=== PATIENT | female | born 1985 | race Two or more races ===

== ENCOUNTER 2024-08-05 17:50 | Emergency (ER) | payer MEDICAID, SELFPAY ==
[2024-08-05 18:23] VITALS: BP 126/84; PULSE 116; RESP 19; TEMP 38.3; O2SAT 98; BMI 34.8
--- NOTE | 2024-08-05 18:51 | XR_ITS ---
Examination: PA lateral chest 2 views Technique: Upright PA lateral chest 2 views Exam date and time: August 05, 2024 at 1902 hrs. Indications: Chest pain today. Findings: Normal heart size. Lungs are clear. The osseous structures are intact Impression: No active disease
--- NOTE | 2024-08-05 18:52 | PD.EDRME ---
Rapid Medical Screening Exam [facility] Arrival date/time: 08/05/24 17:50 39-year-old female presents emergency department complaining of headache, body aches, cough, sore throat, and chest pain when she takes a deep breath. Patient reports her 2 kids at home have similar symptoms. Chief Complaint: Flu Like Symptoms Time Seen by Provider: 08/05/24 18:47 Vital signs: Vital Signs Temperature 101.0 F H 08/05/24 18:23 Pulse Rate 116 H 08/05/24 18:23 Respiratory Rate 19 08/05/24 18:23 Blood Pressure 126/84 08/05/24 18:23 Pulse Oximetry (%) 98 08/05/24 18:23 Oxygen Delivery Method Room Air 08/05/24 18:23 Vital signs reviewed by provider: Yes
--- NOTE | 2024-08-05 18:53 | EKG_ITS ---
[facility] Test Date: 2024-08-05 Pat Name: MERCEDES CRISTOBAL Department: Room: - Gender: Female [employer] Field Agent: : 1985 Requested By: Antonio Holt ([facility]) Order Number: [id number] Reading MD: Antonio Holt ([facility]) Measurements Intervals [place] Rate: 93 P: 35 MI: 132 QRS: 7 QRSD: 73 T: -5 QT: 318 QTc: 395 Interpretive Statements SINUS RHYTHM NONSPECIFIC T-WAVE ABNORMALITY No previous ECG available for comparison [id number]
[2024-08-05] MEDS: ACETAMINOPHEN 500 MG TABLET 1000 MG PO (18:59)
[2024-08-05 22:04] LABS: Strep A Rapid Negative (Negative)
--- NOTE | 2024-08-06 00:15 | PC.NURSE ---
N/A 0015
== END 2024-08-06 00:23 | disposition left against medical advice (07) ==
PROVIDERS: Emergency Provider Emergency Medicine; PCP Physician Assistant
DX: R51.9 Headache, unspecified (principal); R05.9 Cough, unspecified; R07.9 Chest pain, unspecified; J02.9 Acute pharyngitis, unspecified; Z53.29 Procedure and treatment not carried out because of patient's decision for other reasons
CPT/HCPCS: 71046; 87400; 87651; 87811; 93005; 99281; A9270